=== PATIENT | male | born 1985 | race Caucasian/White ===

== ENCOUNTER 2017-06-02 11:29 | Emergency (ER) | payer MEDICAID ==
[2017-06-02 11:38] VITALS: RESP 18; O2SAT 96
[2017-06-02] MEDS ORDERED: IBUPROFEN 600 MG TAB PO ONE ×2 (12:19→12:20)
[2017-06-02] MEDS ORDERED: ACETAMINOPHEN 500 MG TAB ONE (12:19)
--- NOTE | 2017-06-02 12:19 | EDPHY ---
H & P Stated Complaint: COUGHING UP BLOOD/RESP SYMPTOMS X 1 WEEK Time Seen by Provider: 06/02/17 12:16 HPI/ROS: HPI: This is a 32-year-old male who presents with Chief Complaint: Coughing Location: Chest Quality: Cough Duration: More than 1 week Signs and Symptoms: + noted blood tinged sputum while coughing today only, no fever, no chills, no shortness of breath, no wheezing, no fatigue, no neck stiffness Timing: Worsening Severity: Moderate Context: Patient presents with complaints of having or upper respiratory infection approximately 1 week ago that seemed to get better until last night when his coughing episodes increased; still nonproductive in nature; but this morning he noted blood tinged sputum while he was coughing. He has a history of pneumonia. Child has been sick with a cold at home. Eating and drinking normally. Denies any lower extremity edema, palpitations, chest pain. He has been using [id number]-[id number] medications including cough suppressant with minimal relief. Denies any recent long distance travel, unilateral leg swelling. Modifying Factors: Oyri-lim-peingua medications Comment: ROS: see HPI Constitutional: No fever, no chills, no weight loss Eyes: No blurred vision Respiratory: No shortness of breath, no cough Cardiovascular: No chest pain Gastrointestinal: No nausea, no vomiting, no diarrhea Genitourinary: No dysuria Extremities: No myalgias Neurologic: No weakness, no numbness Skin: No rashes Hematologic: No bruising, no bleeding MEDICAL/SURGICAL/SOCIAL HISTORY: Medical history: Generally healthy. Does not take any regular medications. Surgical history: Appendectomy Social history: with 1 child CONSTITUTIONAL: Well-developed well nourished adult male, nontoxic in appearance, awake and alert, no obvious distress HEENT: Atraumatic and normocephalic, PERRL, EOMI. Tympanic membranes clear. Oropharynx clear, no exudate and moist pink mucosa. Airway patent. No lymphadenopathy. No meningismus. Cardiovascular: Normal S1/S2, regular rate, regular rhythm, without murmur rub or gallop. PULMONARY/CHEST: Symmetrical and nontender. Clear to auscultation bilaterally. Good air movement. No accessory muscle usage. ABDOMEN: Soft, nondistended, nontender, no rebound, no guarding, no peritoneal signs, no masses or organomegaly. No CVAT. EXTREMITIES: 2/2 pulses, strength 5/5, no deformities, no clubbing, no cyanosis or edema. NEUROLOGICAL: no focal neuro deficits. GCS 15. SKIN: Warm and dry, no erythema. no rash. Good capillary refill. Source: Patient Exam Limitations: No limitations - Personal History Current Tetanus/Diphtheria Vaccine: Yes - Medical/Surgical History Hx Asthma: No Hx Chronic Respiratory Disease: No Hx Diabetes: No Hx Cardiac Disease: No Hx Renal Disease: No Hx Cirrhosis: No Hx Alcoholism: No Hx HIV/AIDS: No Hx Splenectomy or Spleen Trauma: No Other PMH: APPY - Social History Smoking Status: Never smoked Constitutional: Initial Vital Signs Temperature (C) 36.7 C 06/02/17 11:35 Heart Rate 94 06/02/17 11:35 Respiratory Rate 18 06/02/17 11:35 Blood Pressure 148/86 H 06/02/17 11:35 O2 Sat (%) 96 06/02/17 11:35 O2 Delivery Mode Room Air Allergies/Adverse Reactions: No Known Allergies Allergy (Unverified 06/02/17 11:35) Home Medications: Medication Instructions Recorded Clarithromycin [Biaxin (*)] 500 mg PO BID #14 tab 06/02/17 Codeine Phosphate/Guaifenesin 10 ml PO Q6 PRN #120 ml 06/02/17 [Guaifen-Codeine 200-20 mg/10Ml] Provigil 06/02/17 Medical Decision Making - Diagnostics Imaging Results: Imaging Impressions Chest X-Ray 06/02/17 11:54 Impression: Mild perihilar bronchitis. ED Course/Re-evaluation: Chest x-ray ordered PERC rule= 1; PE low yield Chest x-ray my read shows no signs of pneumonia. Due to the extended course of symptoms of 10 days; started on antibiotics Differential Diagnosis: Differential diagnosis includes but is not limited to bronchitis, influenza upper respiratory tract infection, community-acquired pneumonia. - Data Points Medications Given: Discontinued Medications Acetaminophen (Tylenol) 1,000 mg PO EDNOW ONE Stop: 06/02/17 12:21 Last Admin: 06/02/17 12:40 Dose: 1,000 mg Ibuprofen (Motrin) 600 mg PO EDNOW ONE Stop: 06/02/17 12:21 Last Admin: 06/02/17 12:40 Dose: 600 mg Departure - Departure Disposition: Home, Routine, Self-Care Clinical Impression: Lower respiratory infection (e.g., bronchitis, pneumonia, pneumonitis, pulmonitis) Condition: Good Instructions: Acute Bronchitis (ED) Additional Instructions: Your chest x-ray today does not show signs of pneumonia. It appears to have bronchitis and due to the extended course we will start on antibiotics. Referrals: [facility],. [Clinic] - As per Instructions Prescriptions: Clarithromycin [Biaxin (*)] 500 mg PO BID #14 tab Codeine Phosphate/Guaifenesin [Guaifen-Codeine 200-20 mg/10Ml] 10 ml PO Q6 PRN # 120 ml PRN Reason: Cough, Moderate
[2017-06-02] MEDS ORDERED: ACETAMINOPHEN 500 MG TAB PO ONE (12:20)
[2017-06-02 14:01] VITALS: BP 139/93; PULSE 89; TEMP 98.4
== END 2017-06-02 14:01 | disposition home or self-care (01) ==
DX: J22 Unspecified acute lower respiratory infection (principal)